=== PATIENT | female | born 2005 | race Caucasian/White ===

== ENCOUNTER 2024-08-22 00:15 | Emergency (ER) | payer OTHER ==
[2024-08-22] MEDS ORDERED: Ondansetron PF 4 MG/2 ML Vial ONE (00:26)
[2024-08-22] MEDS ORDERED: HYDROmorphone 0.5 MG/0.5 ML SYRINGE ONE (00:26)
[2024-08-22 00:47] LABS: BHCG - Serum Negative (NEGATIVE); Pregs Control Background? CLEAR/WHITE (CLR/WHITE); Pregs Control Bar Appear? YES (CONTROL BAR)
== END 2024-08-22 03:19 | disposition home or self-care (01) ==
LOC: CSHERS 00:15
DX: N83.01 Follicular cyst of right ovary (principal); N83.02 Follicular cyst of left ovary; E28.2 Polycystic ovarian syndrome
CPT/HCPCS: 76856; 84703; 96374; J1171; J2405

== ENCOUNTER 2024-08-23 11:50 | Emergency (ER) | payer OTHER ==
[2024-08-23] MEDS ORDERED: Morphine 4 MG/ML VIAL ONE (12:28)
[2024-08-23 12:31] LABS: #Basophils 0.03 10x3/uL (0.0-0.2); #Eosinophils 0.31 10x3/uL (0.0-0.5); #Monocytes 0.34 10x3/uL (0.0-1.1); #Neutrophils 3.32 10x3/uL (1.5-8.4); %Basophils 0.5 % (0.0-2.0); %Eosinophils 4.8 % (0.0-6.0); %Lymphocytes 38.4 % (18.0-47.0); %Monocytes 5.2 % (0.0-10.0); %Neutrophils 50.9 % (40.0-75.0); Hematocrit 38.5 % (34.9-44.5); Mean Corpuscular HGB CONC 33.8 g/dL (32.0-36.0); Mean Corpuscular Hemoglobin 29.3 pg (27.0-33.0); Mean Corpuscular Volume 86.7 fL (81.6-98.3); Mean Platelet Volume 10.3 fL (7.4-10.4); Platelet Count 295 10x3/uL (150-450); RBC Distribution Width 12.1 % (11.5-14.5); Red Blood Cell (RBC) Count 4.44 10x6/uL (3.90-5.03); White Blood Cell (WBC) Count 6.51 10x3/uL (3.5-10.5)
[2024-08-23 12:50] LABS: BHCG - Serum Negative (NEGATIVE)
[2024-08-23 12:51] LABS: Pregs Control Background? CLEAR/WHITE (CLR/WHITE); Pregs Control Bar Appear? YES (CONTROL BAR)
[2024-08-23 12:52] LABS: ALT (SGPT) 10 U/L (Less than 34); AST (SGOT) 21 U/L (11-34); Albumin 4.3 g/dL (3.1-4.5); Alkaline Phosphatase 44 U/L (40-100); Anion Gap 12 mmol/L (10-20); BUN (Urea Nitrogen) 10 mg/dL (7.0-18.7); Bilirubin, Total 0.2 mg/dL (0.3-1.2); Calc. Creatinine Clearance 0 mL/min (70-130); Calcium 9.1 mg/dL (7.8-10.44); Carbon Dioxide 20 mmol/L (22-29); Chloride 111 mmol/L (98-107); Estimated GFR 129; Globulin 2.7 g/dL (2.4-3.5); Glucose 96 mg/dL (70-105); Lipase 17 U/L (8-78); Sodium 139 mmol/L (136-145)
[2024-08-23 13:09] LABS: Bilirubin Neg (Negative); Blood, Urine Negative (Negative); Clarity Clear (Clear); Glucose, Urine (Dipstick) Normal (Negative); Ketone, Urine Negative (Negative); Leukocyte 25 (Negative); Nitrite Negative (Negative); Protein, Urine (Dipstick) Negative (Neg-Trace); Urobilinogen Normal mg/dL (Less than 2)
[2024-08-23 13:28] LABS: Bacteria/HPF 2+ HPF (None Seen); CAUTI Indications for Culture Pelvic or flank pain; RBC/HPF None Seen HPF (0-3); Squamous Epithelial 0-3 HPF (0-3); WBC/HPF 0-3 HPF (0-3)
[2024-08-23 13:29] LABS: Urine Culture Reflex No No
== END 2024-08-23 14:05 | disposition home or self-care (01) ==
LOC: CSHERS 11:50
DX: R10.2 Pelvic and perineal pain (principal)
CPT/HCPCS: 36415; 76856; 80053; 81001; 83690; 84703; 85025; 96374; J2270